=== PATIENT | male | born 1990 | race Hispanic/Latino ===

== ENCOUNTER → 2018-11-13 | Outpatient (CLI) | payer SELFPAY | END | disposition home or self-care (01) | LOC: RAH 15:27 | PROVIDERS: ATTEND Internal Medicine | DX: K80.00 Calculus of gallbladder with acute cholecystitis without obstruction (principal) | CPT/HCPCS: 76700 ==

== ENCOUNTER 2023-08-16 07:33 | Emergency (ER) | payer OTHER, SELFPAY ==
[~2023-08-16] VITALS: Ht 180.3 cm; Wt 104.3 kg
[2023-08-16 08:24] LABS: SARS-CoV-2, RNA, NAAT NEGATIVE SARS CoV-2 (NEGATIVE)
[2023-08-16 08:25] LABS: INFLUENZA TYPE A Negative For Type A (NEGATIVE)
[2023-08-16 08:26] LABS: RAPID GROUP A STREP negative (NEGATIVE)
[2023-08-16] MEDS ORDERED: 0.9%NACL 1000ML 1,000 ML IV ONE (09:00)
[2023-08-16 09:03] LABS: INFLUENZA TYPE B Positive For Type B (NEGATIVE)
[2023-08-16] MEDS ORDERED: ONDA22I SL (09:49)
[2023-08-16] MEDS ORDERED: IBUP-2077 PO (09:49)
[2023-08-16] MEDS ORDERED: ACET160S2 PO (09:49)
[2023-08-16 10:00] VITALS: BP 124/88; PULSE 93; RESP 16; O2SAT 97
== END 2023-08-16 10:07 | disposition home or self-care (01) ==
LOC: EDH 07:33
DX: J11.1 Influenza due to unidentified influenza virus with other respiratory manifestations (principal); M79.10 Myalgia, unspecified site; Z20.822 Contact with and (suspected) exposure to COVID-19; Z90.49 Acquired absence of other specified parts of digestive tract
CPT/HCPCS: 99283; 96360; 87635; 87880; 87804 ×2; C9803; J7030